=== PATIENT | female | born 1995 | race Caucasian/White ===

== ENCOUNTER 2017-04-13 14:12 | Emergency (ER) | payer BC, MEDICAID ==
[2017-04-13 17:22] VITALS: BP 109/66
[2017-04-13] MEDS ORDERED: Acetaminophen TAB* 325 MG PO ONE (17:48)
--- NOTE | 2017-04-13 17:50 | UC ---
Throat Pain/Nasal Xavi HPI - HPI Summary HPI Summary: 22 female presents to with complaints of having cold like symptoms over the past 4-5 days that have some what resolved however is now experiencing sore throat, feeling feverish and body aches. Patient has unknown sick contacts. Has been taking ibuprofen with last dose being around 3 hours [employer]. Denies history of mono. Denies fatigue and feeling tired. Has been using chloraseptic spray and gargling salt water. Denies other complaints. No cough, headache, abdominal pain, nausea or vomiting. No PMHx. - History of Current Complaint Chief Complaint: UCRespiratory Stated Complaint: SORE THROAT Time Seen by Provider: 04/13/17 17:36 Hx Obtained From: Patient Hx Last Menstrual Period: 02/17/17 ?: No Onset/Duration: Sudden Onset, Lasting Days, Still Present, Worse Since Severity: Moderate Pain Intensity: 7 Pain Scale Used: 0-10 Numeric Cough: None Associated Signs & Symptoms: Positive: Dysphagia - Allergies/Home Medications Allergies/Adverse Reactions: Allergies Allergy/AdvReac Type Severity Reaction Status Date / Time Sulfa Antibiotics Allergy Unknown Unknown Verified 04/13/17 17:22 Reaction Details Home Medications: Home Medications Etonogestrel [Nexplanon] 04/13/17 [History] Ibuprofen [Ibuprofen 200 MG] 400 mg PO PRN 04/13/17 [History] Norethindrone Acetate-Ethinyl [Lo Loestrin Fe 1 mg-10 Mcg / 10 Mcg] 1 tab PO DAILY 04/13/17 [History Confirmed 04/13/17] PMH/Surg Hx/FS Hx/Imm Hx - Additional Past Medical History Additional PMH: Denies HTN, DM and Asthma - Surgical History Surgical History: Yes Surgery Procedure, Year, and Place: APPENCECTOMY - Family History Known Family History: Positive: None - Social History Alcohol Use: Occasionally Substance Use Type: None Smoking Status (MU): Light Every Day Tobacco Smoker Type: Cigarettes Amount Used/How Often: approx 5 cig per day Length of Time of Smoking/Using Tobacco: since age 18 Have You Smoked in the Last Year: Yes Review of Systems Constitutional: Fever - feels feverish Skin: Negative Eyes: Negative ENT: Sore Throat, Ear Ache, Nasal Discharge - resolved Respiratory: Negative Cardiovascular: Negative Gastrointestinal: Negative Neurological: Negative All Other Systems Reviewed And Are Negative: Yes Physical Exam Triage Information Reviewed: Yes Appearance: Well-Appearing, No Pain Distress, Well-Nourished Vital Signs: Initial Vital Signs Temp 100.1 F 04/13/17 17:15 Pulse 88 04/13/17 17:15 Resp 16 04/13/17 17:15 BP 109/66 04/13/17 17:15 Pulse Ox 99 04/13/17 17:15 Vital Signs Reviewed: Yes Eyes: Positive: Conjunctiva Clear ENT: Positive: Normal ENT inspection, Hearing grossly normal, Pharyngeal erythema, TMs normal, Tonsillar swelling, Tonsillar exudate, Other: - no sign of peritonsillar abscess, patent airway. Negative: Trismus, Muffled/hoarse voice Dental: Positive: Cervical Lymphadenopathy. Negative: Percussion Tenderness @ Neck: Positive: Supple, Nontender Respiratory: Positive: Chest non-tender, Lungs clear, Normal breath sounds, No respiratory distress, No accessory muscle use Cardiovascular: Positive: RRR, No Murmur, Pulses Normal Abdomen Description: Positive: Nontender, Soft Bowel Sounds: Positive: Present Musculoskeletal: Positive: Strength Intact, ROM Intact, No Edema Neurological: Positive: Alert Skin Exam: Normal Throat Pain/Nasal Course/Dx - Course Course Of Treatment: strep culture obtained and negative however according to patients HPI, PE findings and according to [facility] Criteria patient will be treated for strep pharyngitis, as she has textbook signs. Fever 100.3 althogh she had antipyretic 3 hours ago. Continue tylenol/ibuprofen, fluids, chloraseptic spray, gargle with salt water, antbiotic and rest. Aware of worsening signs and symptoms to watch out for. Follow up PCP. - Differential Dx/Diagnosis Differential Diagnosis/HQI/PQRI: Laryngitis, Mononucleosis, Pharyngitis, Tonsillitis Provider Diagnoses: streptococcal pharyngitis Discharge - Discharge Plan Condition: Stable Disposition: HOME Prescriptions: Amoxicillin PO (*) [Amoxicillin 500 MG CAP*] 500 mg PO Q12H #20 cap Referrals: Tez Barajas DO [Primary Care Provider] - Additional Instructions: Continue ibuprofen and tylenol for pain and fever. Take prescribed medication as directed to fight infection. This will decrease the effectiveness of your control. Recommend using double protection or practicing abstinence until next cycle. Recommend eating algerian yogurt or taking probiotics in between doses. Drink plenty of fluids. Chloraseptic spray and gargle with salt water. This is contagious for atleast 48 hours after taking antibiotic, wash hands frequently, do not share drinks. If symptoms worsen or new symptoms develop or do not improve please seek medical attention promptly. Follow up PCP.
== END 2017-04-13 17:57 | disposition home or self-care (01) ==
LOC: UCCORT 14:12
DX: J02.0 Streptococcal pharyngitis (principal); Z72.0 Tobacco use
CPT/HCPCS: 87651; 99212; A9270-GY; G0463

== ENCOUNTER 2018-07-24 05:45 | Day surgery (SDC) | payer BC, MEDICAID ==
[~2018-07-24 05:45] MED LIST: Buffered Lidocaine 0.9% SYRIN* 5 ML/SYR SYRINGE INTRADERM ONE; Dexamethasone IV* 4 MG/ML 1 ML (4 MG) IV SLOW PU ONE; Famotidine IV* 10 MG/ML 2 ML (20 mg) IV ONE; Lactated Ringers 1000 ML Bag* 1,000 ML IV SCH
[2018-07-24] MEDS ORDERED: Famotidine IV* 10 MG/ML 2 ML (20 mg) IV ONE (06:00)
[2018-07-24] MEDS ORDERED: Lactated Ringers 1000 ML Bag* 1,000 ML IV SCH (06:00)
[2018-07-24] MEDS ORDERED: Famotidine IV* 10 MG/ML 2 ML (20 mg) ONE (06:15)
[2018-07-24 06:42] LABS: Hematocrit 35 % (35-47); Mean Corpuscular HGB Conc 34 g/dl (31-36); Mean Corpuscular Hemoglobin 32 pg (27-31); Mean Corpuscular Volume 93 fL (80-97); Mean Platelet Volume 7.9 fL (7.4-10.4); Platelet Count 214 10^3/ul (150-450); Red Blood Count 3.82 10^6/ul (4.00-5.40); Red Cell Distribution Width 12 % (10.5-15); White Blood Count 6.6 10^3/ul (3.5-10.8)
[2018-07-24] MEDS ORDERED: Bupivacaine 0.25% SDV PF* 10 ML VIAL INJ ONE (07:11)
[2018-07-24] MEDS ORDERED: Midazolam* 1 MG/ML 5 ML VIAL (5 MG) ONE (07:32)
[2018-07-24] MEDS ORDERED: fentaNYL* 50 MCG/ML 2 ML VIAL (100 MCG VIAL) ONE (07:32)
[2018-07-24] MEDS ORDERED: Ketorolac INJ* 30 MG/ML 1 ML VIAL ONE (07:57)
[2018-07-24] MEDS ORDERED: Succinylcholine* 20 MG/ML 10 ML VIAL ONE (07:57)
[2018-07-24] MEDS ORDERED: Ondansetron INJ* 2 MG/ML VIAL ONE (07:57)
[2018-07-24] MEDS ORDERED: DiMENhydriNATE IV* 50 MG/ML VIAL ONE (07:57)
[2018-07-24] MEDS ORDERED: Dexamethasone IV* 4 MG/ML 1 ML (4 MG) ONE (07:57)
[2018-07-24] MEDS ORDERED: Lidocaine 2% PF * 5 ML VIAL ONE (07:57)
[2018-07-24] MEDS ORDERED: Propofol* 10 MG/ML 20 ML BTL ONE (07:57)
[2018-07-24] MEDS ORDERED: Scopolamine 1.5 mg* PATCH TRANSDERM PRN (08:03)
[2018-07-24] MEDS ORDERED: DiMENhydriNATE IV* 50 MG/ML VIAL IV PUSH PRN (08:03)
[2018-07-24] MEDS ORDERED: Naloxone* 0.4 MG/ML 1 ML VIAL IV PRN (08:03)
[2018-07-24] MEDS ORDERED: HYDROmorphone INJ1* 1 MG/ML SYRINGE IV PRN (08:03)
[2018-07-24] MEDS ORDERED: Acetaminophen IV 1GM/100ML * 1,000 MG/100 ML VIAL IVPB ONE (08:03)
[2018-07-24] MEDS ORDERED: oxyCODONE TAB* 5 MG TAB PO PRN (08:03)
[2018-07-24] MEDS ORDERED: HYDROmorphone INJ1* 1 MG/ML SYRINGE ONE (08:26)
[2018-07-24] MEDS ORDERED: Acetaminophen IV 1GM/100ML * 100 ML ONE (08:58)
[2018-07-24 09:55] VITALS: BP 108/60
--- NOTE | 2018-07-30 23:35 | OP ---
DATE OF OPERATION: 07/24/18 - [facility] DATE OF : 89 SURGEON: Zenaida Estrada MD. ANESTHESIA: General. PRE-OP DIAGNOSIS: Persistent pelvic pain and dyspareunia. POST-OP DIAGNOSIS: Persistent pelvic pain and dyspareunia and abdominal adhesion. OPERATIVE PROCEDURE: Operative laparoscopy with lysis of adhesions. ESTIMATED BLOOD LOSS: Minimal. URINE OUTPUT: 500 cc. IV FLUIDS: 500 cc of lactated Ringer's. MATERIALS TO LAB: None. INDICATIONS: This patient is a 23-year-old, 1, para 1, seen in the office with a complaint of 2 to 3 years of persistent lower pelvic pain as well as pain with intercourse. The patient had tried multiple medications including pain medicines and oral contraceptives, all without any significant improvement. The patient had had a in the meantime with no change in her symptoms during or after this. She had also been seen in [place] with pelvic physical therapy, which also had not significantly improved her symptoms. The patient desired to have a diagnostic laparoscopy performed to see if there is anything anatomical that could be visualized. The patient was extensively counseled and consent was signed. The patient understood that if anything visible and minor was present that it would be treated at that time. FINDINGS: Normal-appearing pelvis with normal uterus, fallopian tubes, and ovaries. No visible lesions or evidence of endometriosis in the pelvis. The patient had had a previous appendectomy and there was an omental adhesion to the anterior abdominal wall in the right lower quadrant consistent with the patient's prior surgery. This was taken down with a LigaSure. Right and left upper quadrants appeared normal. COMPLICATIONS: None. DESCRIPTION OF PROCEDURE: The risks, benefits, and alternatives were described to the patient and informed consent was obtained. The patient was taken to the operating room with IV running where general anesthesia was induced and found to be adequate. The patient was prepped and draped in the normal sterile fashion in the high lithotomy position in [facility]. A time-out was performed. A Hill catheter was placed and a bivalve speculum was placed in the vagina. A Hulka tenaculum was placed through the cervix and into the uterus and the speculum was removed. The patient was then placed in a low lithotomy position and gloves were changed. 0.5% Marcaine was then injected into the umbilicus. A 5 mm incision were made in the umbilicus. Penetrating towel clamps were placed on either side of the umbilical incision and the skin was elevated with towel clamps. A 5 mm bladeless trocar was then placed through the incision and into the peritoneal cavity under direct visualization with the laparoscope. The abdomen was then insufflated with carbon dioxide gas to a maximum pressure of 15 mmHg. The area below the trocar insertion site was carefully inspected and there was no visible evidence of trauma or bleeding. Marcaine was also injected into the left lower quadrant and a 5mm incision was made. A 5 mm bladeless trocar was then placed into the left lower quadrant incision again without difficulty. The patient was then placed in the Trendelenburg position. A blunt grasper was used to sweep the bowel out of the pelvis. The Hulka tenaculum was used for uterine manipulation and the uterus, fallopian tubes, ovaries, and the areas adjacent to the ovaries were well visualized with no visible evidence of abnormalities or lesions. The appendix was absent. Of note, there was a right lower quadrant adhesion of omentum to the anterior abdominal wall. A LigaSure was then prepared and used to coagulate and transect the connections of this adhesion near the surface of the anterior abdominal wall. This was done without any significant bleeding or complications. There was no apparent bowel in the adhesions. The right and left upper quadrants were also carefully inspected and there were no visible abnormalities present. At that time, the procedure was discontinued. The patient was flattened and the gas was allowed to escape from the abdomen. Trocars were removed. The incisions were reapproximated using 4-0 Monocryl in a subcuticular stitch and both incisions were covered with DermaFlex skin adhesive. The Hill catheter and Hulka tenaculum were then removed and there was minimal bleeding from the vagina at that time. The patient was returned to the supine position and allowed to awaken. The patient tolerated the procedure well. Sponge, lap, and needle counts were correct x2. [id number]/[facility] #: [id number] [facility]
== END 2018-07-24 10:31 | disposition home or self-care (01) ==
LOC: OR 05:45
PROVIDERS: ATTEND Obstetrics & Gynecology
DX: R10.2 Pelvic and perineal pain (principal); N94.19 Other specified dyspareunia; K66.0 Peritoneal adhesions (postprocedural) (postinfection)
CPT/HCPCS: 36415; 81025; 85027; 86850; 86900; 86901; J0330; J1100; J1170; J1240; J1885; J2250; J2405; J2704; J3010; J3490

== ENCOUNTER 2019-09-28 12:03 | Emergency (ER) | payer BC, MEDICAID ==
--- OUTSIDE RECORDS SUMMARY | 2019-09-28 12:39 | XMS REPORT | Continuity of Care Document ---
:1995 External Reference #:[id number] Author Name Flora Angelo PA (transmitted by agent of provider Walter Denton) Address [address] [facility] [address] [place] [address] Problems Active Problems Provider Date Malaise and fatigue Tez Barajas D.O. Onset: 04/23/2013 Generalized anxiety disorder Tez Barajas D.O. Onset: 04/23/2013 Wheezing Tez Barajas D.O. Onset: 04/23/2013 Panic disorder without agoraphobia Tez Barajas D.O. Onset: 12/22/2013 Influenza with respiratory manifestation other Tez Barajas D.O. Onset: than pneumonia Asthma without status asthmaticus Tez Barajas D.O. Onset: 09/01/2014 Gastroesophageal reflux disease Tez Barajas D.O. Onset: 10/04/2014 Hyperemesis Gravidarum Mild Episode Of Care Tez Barajas D.O. Onset: 10/04 Unspecified Or N/A Pain in female genitalia on intercourse Tez Barajas D.O. Onset: 2015 Adjustment disorder with mixed emotional Flora Angelo PA Onset: 04/17/2018 features Bipolar disorder Flora Angelo PA Onset: 07/30/2019 Tobacco user Flora Angelo PA Onset: 07/30/2019 Social History Type Date Description Comments Sex Unknown ETOH Use 04/12/2016 Occassional Alcohol not since being Recreational Drug Use Denies Drug Use Tobacco Use Reviewed: 07/02/19 Light tobacco smoker (10 or fewer cigarettes/day) Tobacco Use Start: Unknown End: Patient is a former quit smoking Unknown smoker 08/14/19 Smoking Status Reviewed: 09/01/19 Patient is a former quit smoking smoker 08/14/19 Exercise Type/Frequency Exercises regularly Sun Exposure Uses sunscreen Seat Belt/Car Seat Seat Belt Use - Yes Guns in Home No Smoke Alarms Yes smoke alarm Allergies, Adverse Reactions, Alerts Active Allergies Reaction Severity Comments Date Sulfa pt unsure of reaction 04/23/2013 Amoxicillin Suicidal Severe 04/16/2017 Medications Active Medications SIG Qnty Indications Ordering Date Provider Nitrofurantoin Monohyd 1 tab by mouth 14caps N39.0 Walter Denton, 2019 Macro twice a day x7 M.D. 100mg Capsules days Latuda 1 tab po daily 30tabs F31.9 Walter Denton, 09/01/2019 40mg Tablets for bipolar M.DJorge Paroxetine HCL 1 tab by mouth 30tabs F43.23 Tez Barajas, 07/02/2019 40mg Tablets every day for D.O. mood Norgestim-Eth Estrad 1 by mouth every 84tabs N92.6 Walter Denton, 2018 Triphasic day M.D. 0.18/0.215/0.25 mg-25 mcg Tablets Multivitamin Adult 1 by mouth every Unknown 04/22/2019 Tablets day Alprazolam 1 tab by mouth 60tabs F43.23 Walter Denton, 05/15/2018 0.25mg Tablets up to 2 times a M.D. day as needed for anxiety History Medications Latuda 2 tabs by mouth 60tabs F31.9 Bertin, 08/03/2019 - 20mg Tablets daily for bautista Watson M.D. 09/01/2019 disorder Aripiprazole 1 tab by mouth 30tabs F31.9 Silcoff, 07/30/2019 - 20mg daily for bipolar Morgan Watson 08/03/2019 Tablets disorder Paroxetine HCL take 1 tablet by 30tabs F43.23 Tez Barajas, 06/04/2019 - 20mg mouth once daily D.O. 07/02/2019 Tablets for mood Azithromycin 2 tabs day one 6tabs J02.9 Bertin, 05/28/2019 - 250mg and 1 tab days Morgan Watson 06/03/2019 Tablets 2-5 Paroxetine HCL 1 by mouth every 90tabs F43.23 Tez Barajas, 04/23/2019 - 10mg day D.O. 06/04/2019 Tablets Bupropion take 1 tablet by 90tabs F17.210 Tez Barajas, 04/23/2019 - Hydrochloride ER (XL) mouth every day D.O. 07/02/2019 for smoking 150mg Tablets ER 24HR cessation Immunizations CPT Code Status Date Vaccine Lot # [id number] Given 04/23/2019 Influenza Virus Vaccine, Quadrivalent, Split, [id number] Preservative Free 79931 Given 04/17/2018 Td Immunization [id number] 67309 Given 04/12/2016 Influenza Virus Vaccine, Quadrivalent, Split, [id number] Preservative Free 06300 Given 09/01/2012 Menactra Menningitis Vaccine 12872 Given 09/01/2012 MMR Virus Immunization 13479 Given 01/27/2007 Varicella (Chicken Pox) Immunization 90118 Given 01/27/2007 Gardasil HPV vaccine 30604 Given 09/01/2005 Adacel or Boostrix, TDaP 61747 Given 02/08/2000 Poliomyelitis Immunization 20099 Given 02/08/2000 MMR Virus Immunization 95740 Given 02/08/2000 Dtap Immunization (Tripedia) (Infanrix) 43088 Given 05/18/1999 Varicella (Chicken Pox) Immunization 03746 Given 03/11/1998 Poliomyelitis Immunization 02907 Given 01/31/1998 Hep B Immunization, Ped/Adolescent To 11 Yrs 77918 Given 08/31/1996 Hep B Immunization, Ped/Adolescent To 11 Yrs 95060 Given 08/31/1996 Dtap Immunization (Tripedia) (Infanrix) 99622 Given 08/31/1996 3 dose Hib (PRP-Omp) 79949 Given 05/26/1996 Hep B Immunization, Ped/Adolescent To 11 Yrs 61940 Given 05/26/1996 MMR Virus Immunization 45857 Given 1995 Poliomyelitis Immunization 42673 Given 1995 Dtap Immunization (Tripedia) (Infanrix) 14405 Given 1995 3 dose Hib (PRP-Omp) 98541 Given 1995 Poliomyelitis Immunization 99301 Given 1995 Dtap Immunization (Tripedia) (Infanrix) 95597 Given 1995 3 dose Hib (PRP-Omp) Vital Signs Date Vital Result Comment 09/01/2019 2:39pm BP Systolic 116 mmHg BP Diastolic 68 mmHg Weight 114.00 lb 07/30/2019 11:10am BP Systolic 110 mmHg BP Diastolic 72 mmHg Height 65 inches 5'5" Weight 117.00 lb BMI (Body Mass Index) 19.5 kg/m2 Results Test Acquired Date Facility Test Result H/L Range Note Ua Inhouse 09/01/2019 In House Ua Glucose - 1 Ua Bilirubin - Ua Ketones - Ua Specific [place] 1.020 Ua Blood H Tr Ua PH 5.0 Ua Protein - Ua Urobilinogen - Ua Nitrite - Ua Leukocytes mod/2+ Laboratory test finding 05/28/2019 In House Culture Throat Rapid negative Screen Culture Throat negative 1 void, clear, gold Procedures Description No Information Available Medical Devices Description No Information Available Encounters Type Date Location Provider Dx Diagnosis Office Visit 09/01/2019 Main Office Flora Angelo PA F31.9 Bipolar disorder, 2:30p unspecified F43.23 Adjustment disorder with mixed anxiety and depressed mood N39.0 Urinary tract infection, site not specified Office Visit 07/30/2019 11:05a Main Office Flora Angelo, F31.9 Bipolar disorder, PA unspecified F43.23 Adjustment disorder with mixed anxiety and depressed mood F17.210 Nicotine dependence, cigarettes, uncomplicated Z68.1 Body mass index (BMI) 19.9 or less, adult Office Visit 07/02/2019 9:45a Main Office Flora Angelo F43.23 Adjustment disorder PA with mixed anxiety and depressed mood F17.210 Nicotine dependence, cigarettes, uncomplicated Office Visit 06/04/2019 9:25a Main Office Flora Angelo F43.23 Adjustment disorder PA with mixed anxiety and depressed mood N92.6 Irregular menstruation, unspecified F17.210 Nicotine dependence, cigarettes, uncomplicated Office Visit 05/28/2019 10:20a Main Office Edwina Esquivel J02.9 Acute pharyngitis, P.A. unspecified J01.90 Acute sinusitis, unspecified Office Visit 04/23/2019 10:30a Main Office Tez Barajas, Z00.01 Encounter for D.O. general adult medical exam w abnormal findings F43.23 Adjustment disorder with mixed anxiety and depressed mood F41.9 Anxiety disorder, unspecified R06.2 Wheezing F17.210 Nicotine dependence, cigarettes, uncomplicated Z23 Encounter for immunization Z41.8 Encntr for oth proc for purpose oth [facility] Z68.1 Body mass index (BMI) 19.9 or less, adult Assessments Date Code Description Provider 09/01/2019 F31.9 Bipolar disorder, unspecified Hektor, Flora, PA 09/01/2019 F43.23 Adjustment disorder with mixed anxiety and Hektor, Flora, PA depressed mood 09/01/2019 N39.0 Urinary tract infection, site not specified Hektor, Flora, PA 07/30/2019 F31.9 Bipolar disorder, unspecified Hektor, Flora, PA 07/30/2019 F43.23 Adjustment disorder with mixed anxiety and Hektor, Flora, PA depressed mood 07/30/2019 F17.210 Nicotine dependence, cigarettes, Hektor, Flora, PA uncomplicated 07/30/2019 Z68.1 Body mass index (BMI) 19.9 or less, adult Hektor, Flora, PA 07/02/2019 F43.23 Adjustment disorder with mixed anxiety and Hektor, Flora, PA depressed mood 07/02/2019 F17.210 Nicotine dependence, cigarettes, Hektor, Flora, PA uncomplicated 06/04/2019 F43.23 Adjustment disorder with mixed anxiety and Hektor, Flora, PA depressed mood 06/04/2019 N92.6 Irregular menstruation, unspecified Hektor, Flora, PA 06/04/2019 F17.210 Nicotine dependence, cigarettes, Hektor, Flora, PA uncomplicated 05/28/2019 J02.9 Acute pharyngitis, unspecified Edwina La Vernia, P.A. 05/28/2019 J01.90 Acute sinusitis, unspecified Edwina La Vernia, P.A. 04/23/2019 Z00.01 Encounter for general adult medical Tez Barajas D.O. examination with abnormal findings 04/23/2019 F43.23 Adjustment disorder with mixed anxiety and Tez Barajas D.O. depressed mood 04/23/2019 F41.9 Anxiety disorder, unspecified Tez Barajas D.O. 04/23/2019 R06.2 Wheezing Tez Barajas D.O. 04/23/2019 F17.210 Nicotine dependence, cigarettes, Tez Barajas D.O. uncomplicated 04/23/2019 Z23 Encounter for immunization Tez Barajas D.O. 04/23/2019 Z41.8 Encounter for other procedures for purposes Tez Barajas D.O. other than remedying health state 04/23/2019 Z68.1 Body mass index (BMI) 19.9 or less, adult Tez Barajas D.O. Plan of Treatment Future Appointment(s):04/28/2020 10:05 am - Flora Angelo PA at [id number]/2020 - Flora Angelo, PAF31.9 Bipolar disorder, unspecifiedNew Medication: Aripiprazole 20 mg - 1 tab by mouth daily for bipolar disorderComments: Discussed that current sx are consistent w bipolar disorder (which pt was diagnosed w prior - see HPI). Pt agreed. Will try adding abilify (consider latuda if that is not working). Pt strongly encouraged to make appt w counselor. F/U in few weeks, sooner if needed.Follow up:f/u few vdilzA23.23 Adjustment disorder with mixed anxiety and depressed moodComments:Persistent depression/anxiety, likely bipolar (see #1). Continue paroxetine 40mg daily and prn alprazolam for panic. Pt to schedule appt w counselor raza. Recheck in few weeks, sooner if needed.F17.210 Nicotine dependence, cigarettes, uncomplicatedComments:Smoking cessation counseling <10 minutes done today. Patient will continue working on cessation.Z68.1 Body mass index (BMI) 19.9 or less, adult Functional Status Description No Information Available Mental Status Description No Information Available Referrals Description No Information Available
[2019-09-28 12:48] VITALS: BP 111/64
--- NOTE | 2019-09-28 12:58 | UC ---
Complaint Female HPI - HPI Summary HPI Summary: "I'm pretty sure I have a UTI." Urinary frequency, urinary urgency, "like, ten" episodes of urinary incontinence, and dysuria for twelve hours. Transient vaginal discomfort two days ago. Last UTI "two weeks ago" and "eight, I guess" in the last year. Has never seen a urologist. When asked, denies fever/chills, abdominal pain, back pain, NVD, gross hematuria, or abnormal vaginal discharge/ itching/odor. - History Of Current Complaint Chief Complaint: UCGU Stated Complaint: URINARY Time Seen by Provider: 09/28/19 12:41 Hx Obtained From: Patient Hx Last Menstrual Period: 09/21/2019 Onset/Duration: Sudden Onset, Lasting Days Timing: Intermittent Severity Initially: Mild Severity Currently: Mild Pain Intensity: 0 Aggravating Factor(s): Urination - Allergies/Home Medications Allergies/Adverse Reactions: Allergies Allergy/AdvReac Type Severity Reaction Status Date / Time Sulfa (Sulfonamide Allergy Unknown Unknown Verified 09/28/19 12:42 Antibiotics) Reaction Details amoxicillin Allergy Suicidal Verified 09/28/19 12:42 Thoughts Home Medications: Home Medications ALPRAZolam TAB* [Xanax TAB*] 0.25 mg PO BID PRN MDD 2 05/23/18 [History Confirmed 09/28/19] Cranberry Conc/C/Bacill Coag [Azo Cranberry 250-30 mg] 1 tab PO ONCE 09/28/19 [ History Confirmed 09/28/19] Lurasidone(*) [Latuda] 20 mg PO DAILY 09/28/19 [History Confirmed 09/28/19] Norgestimate-Ethinyl Estradiol [Norg-Ee 0.18-0.215-0.25/0.025] 1 each PO DAILY 09/28/19 [History Confirmed 09/28/19] PARoxetine HCL TAB* [Paxil TAB*] 10 mg PO DAILY 09/28/19 [History Confirmed 04/10] PMH/Surg Hx/FS Hx/Imm Hx Previously Healthy: Yes - Surgical History Surgical History: Yes Surgery Procedure, Year, and Place: [facility] - Family History Known Family History: Negative: Hypertension - Social History Alcohol Use: Occasionally Substance Use Type: None Smoking Status (MU): Former Smoker Type: Cigarettes Amount Used/How Often: approx 5 cig per day Length of Time of Smoking/Using Tobacco: since age 18 Have You Smoked in the Last Year: No When Did the Patient Quit Smoking/Using Tobacco: 2018 Review of Systems All Other Systems Reviewed And Are Negative: Yes Genitourinary: Positive: Dysuria, Frequency, Urgency Is Patient Immunocompromised?: No Physical Exam Triage Information Reviewed: Yes Appearance: Well-Nourished, Ill-Appearing, Pain Distress Vital Signs: Initial Vital Signs Temp 98.4 F 09/28/19 12:39 Pulse 66 09/28/19 12:39 Resp 16 09/28/19 12:39 BP 111/64 09/28/19 12:39 Pulse Ox 99 09/28/19 12:39 Vital Signs Reviewed: Yes Eye Exam: Normal ENT Exam: Normal Dental Exam: Normal Neck exam: Normal Respiratory Exam: Normal Cardiovascular Exam: Normal Abdominal Exam: Normal Abdomen Description: Positive: CVA Tenderness (R) - neg, CVA Tenderness (L) - neg Bowel Sounds: Positive: Present Musculoskeletal Exam: Normal Neurological Exam: Normal Psychological Exam: Normal Skin Exam: Normal Complaint Female Dx - Course Course Of Treatment: hx obtained, exam performed, meds reviewed, UA positive - Differential Dx/Diagnosis Differential Diagnosis/HQI/PQRI: Urinary Tract Infection Provider Diagnosis: UTI (urinary tract infection) Discharge ED - Sign-Out/Discharge Documenting (check all that apply): Patient Departure All imaging exams completed and their final reports reviewed: No Studies - Discharge Plan Condition: Stable Disposition: HOME Patient Education Materials: Urinary Tract Infection in Women (DC) Referrals: Tez Barajas DO [Primary Care Provider] - Additional Instructions: 1. take the medication as prescribed. 2. Increase fluid intake 3. Follow up if not improving - Billing Disposition and Condition Condition: STABLE Disposition: Home
--- NOTE | 2019-09-30 07:16 | UC ---
- Progress Note Progress Note: Please call to advise that culture is negative for growth of bacteria. Please call to let her know this; if she has persistent symptoms, should follow up with PMD to look at other possible reasons. She can stop use of antibiotic. Course/Dx - Diagnoses Provider Diagnoses: UTI (urinary tract infection) Discharge ED - Sign-Out/Discharge Documenting (check all that apply): Post-Discharge Follow Up All imaging exams completed and their final reports reviewed: No Studies - Discharge Plan Condition: Stable Disposition: HOME Prescriptions: Nitrofurantoin Monohyd/M-Cryst [Macrobid 100 mg Capsule] 100 mg PO BID #14 cap Patient Education Materials: Urinary Tract Infection in Women (DC) Referrals: Tez Barajas DO [Primary Care Provider] - Additional Instructions: 1. take the medication as prescribed. 2. Increase fluid intake 3. Follow up if not improving - Billing Disposition and Condition Condition: STABLE Disposition: Home
== END 2019-09-28 13:08 | disposition home or self-care (01) ==
LOC: UCCORT 12:03
DX: N39.0 Urinary tract infection, site not specified (principal); Z88.0 Allergy status to penicillin; Z88.2 Allergy status to sulfonamides; Z87.891 Personal history of nicotine dependence
CPT/HCPCS: 81003; 87086; 99212; G0463